=== PATIENT | male | born 1985 | race Two or more races ===

== ENCOUNTER 2024-07-23 13:37 | Emergency (ER) | payer OTHER ==
[~2024-07-23] VITALS: Ht 172.7 cm; Wt 95.3 kg
[~2024-07-23 13:37] MED LIST: CIPR-263 PO; LOPE2CAP40 PO
[2024-07-23 19:23] LABS: BASOPHILS # (AUTO) 0.1 K/UL (0.0-0.2); BASOPHILS % (AUTO) 0.7 % (0.0-2.0); EOSINOPHILS # (AUTO) 0.1 K/uL (0.0-0.7); EOSINOPHILS % (AUTO) 0.4 % (0.0-7.0); HEMATOCRIT 43.8 % (36.7-47.1); HEMOGLOBIN 14.9 g/dL (12.5-16.3); LYMPHOCYTES # (AUTO) 2.5 K/uL (0.8-4.8); LYMPHOCYTES % (AUTO) 17.9 % (20.5-51.5); MEAN CORPUSCULAR HEMOGLOBIN 29.5 uug (23.8-33.4); MEAN CORPUSCULAR HGB CONC 34 g/dL (32.5-36.3); MEAN CORPUSCULAR VOLUME 86.8 fL (73.0-96.2); MONOCYTES # (AUTO) 1.4 K/uL (0.1-1.30); MONOCYTES % (AUTO) 10.5 % (0.0-11.0); NEUTROPHILS # (AUTO) 9.6 K/uL (1.8-8.9); NEUTROPHILS % (AUTO) 70.5 % (38.5-71.5); PLATELET COUNT (AUTO) 229 K/uL (152-348); RED BLOOD CELL COUNT(AUTO) 5.05 MIL/uL (4.06-5.63); RED CELL DISTRIBUTION WIDTH 13.9 % (12.1-16.2); WHITE BLOOD COUNT (AUTO) 13.7 K/uL (3.6-10.2)
[2024-07-23 19:44] LABS: DIFFERENTIAL COMMENT 1
[2024-07-23 19:53] LABS: CALCIUM 9.1 mg/dL (8.5-10.1); CREATININE 1.1 mg/dL (0.6-1.3); POTASSIUM 3.7 mmol/L (3.5-5.1)
[2024-07-23] MEDS ORDERED: KETOROLAC TROMETHAMINE 30 MG INJ ONE (20:04)
[2024-07-23] MEDS ORDERED: levoFLOXacin 500 MG/D5W 100 ML ONE (20:04)
[2024-07-23] MEDS ORDERED: METRONIDAZOLE 500 MG/NS 100ML 100 ML IV ONE (20:04)
[2024-07-23 20:11] LABS: BILIRUBIN,TOTAL 1.1 mg/dL (0.2-1.0); TOTAL PROTEIN, SERUM 8.5 g/dL (6.4-8.2)
[2024-07-23] MEDS: KETOROLAC TROMETHAMINE 30 MG INJ IVP ONE (20:29)
[2024-07-23] MEDS: METRONIDAZOLE 500 MG/NS 100 ML PIGGYBACK IV ONE (20:30)
[2024-07-23] MEDS: levoFLOXacin 500 MG/D5W 100ML PIGGYBACK IV ONE (20:32)
[2024-07-23] MEDS ORDERED: LEVO500T90 PO (21:40)
[2024-07-23] MEDS ORDERED: METR500T PO (21:40)
[2024-07-23 21:57] VITALS: BP 143/73; TEMP 98; O2SAT 97
[2024-07-23 22:25] LABS: *BILIRUBIN,URIN NEGATIVE (NEGATIVE); *BLOOD, URINE NEGATIVE (NEGATIVE); *CLARITY,URINE CLEAR (CLEAR); *COLOR,URINE YELLOW (YELLOW); *KETONES,URINE NEGATIVE (NEGATIVE); *PROTEIN,URINE TRACE (NEGATIVE); *UROBILINOGEN,URINE 0.2 E.U./dl (NORMAL); LEUKOCYTE ESTERASE ,URINE NEGATIVE (NEGATIVE); NITRITE, URINE NEGATIVE (NEGATIVE); PH,URINE 5.5 (5.0-8.0); UGLUCOSE NEGATIVE (NEGATIVE)
[2024-07-23 22:39] LABS: RBC,URINE 0-3 /HPF (0-3); WBC,URINE 0-3 /HPF (0-3)
== END 2024-07-23 21:58 | disposition home or self-care (01) ==
LOC: ER 13:37
DX: K57.32 Diverticulitis of large intestine without perforation or abscess without bleeding (principal); F17.200 Nicotine dependence, unspecified, uncomplicated; Z88.7 Allergy status to serum and vaccine
CPT/HCPCS: 99285; 74176; 96365; 96375; 80053; 81001; 83690; 85025; 87040; 80307; J1885; J1956; J3490; A4606; A4663